=== PATIENT | female | born 2000 | race Caucasian/White ===

== ENCOUNTER 2018-05-05 21:45 | Emergency (ER) | payer OTHER ==
[~2018-05-05] VITALS: Ht 162.6 cm; Wt 99.8 kg
[~2018-05-05 21:45] MED LIST: KEFLEX500 MG PO; MEDROLDOSEPACK PO
[2018-05-05] MEDS ORDERED: AZITHROMYCIN 2250 MG (21:54)
[2018-05-05] MEDS ORDERED: HYDROCODONE-ACE15 ML PO (22:41)
[2018-05-05 23:06] VITALS: BP 117/72
== END 2018-05-05 23:08 | disposition home or self-care (01) ==
LOC: M.ERS 21:45
DX: J02.9 Acute pharyngitis, unspecified (principal); J45.909 Unspecified asthma, uncomplicated; F17.210 Nicotine dependence, cigarettes, uncomplicated; Z88.0 Allergy status to penicillin; Z88.1 Allergy status to other antibiotic agents

== ENCOUNTER 2018-05-29 22:56 | Emergency (ER) | payer OTHER ==
[~2018-05-29] VITALS: Ht 162.6 cm; Wt 102.1 kg
[~2018-05-29 22:56] MED LIST changes: +AZITHROMYCIN 2250 MG; +HYDROCODONE-ACE15 ML PO
[2018-05-29] MEDS ORDERED: IBUPROFEN 800800 M1 PO (23:35)
[2018-05-29 23:56] VITALS: BP 113/76
== END 2018-05-29 23:59 | disposition home or self-care (01) ==
LOC: M.ERS 22:56
DX: S93.491A Sprain of other ligament of right ankle, initial encounter (principal); J45.909 Unspecified asthma, uncomplicated; Z88.0 Allergy status to penicillin; Z88.2 Allergy status to sulfonamides; Z88.8 Allergy status to other drugs, medicaments and biological substances; X50.1XXA Overexertion from prolonged static or awkward postures, initial encounter; Y93.89 Activity, other specified; Y92.89 Other specified places as the place of occurrence of the external cause; Y99.8 Other external cause status

== ENCOUNTER 2019-05-18 15:10 | Emergency (ER) | payer OTHER ==
[~2019-05-18] VITALS: Ht 162.6 cm; Wt 117.9 kg
[~2019-05-18 15:10] MED LIST changes: +IBUPROFEN 800800 M1 PO
[2019-05-18 16:00] LABS: ABSOLUTE EOSINOPHILS 0.3 thou/uL (0.0-0.7); ABSOLUTE MONOCYTES 0.9 thou/uL (0.0-1.2); ABSOLUTE NEUTROPHILS 5.4 thou/uL (1.6-8.1); BASOPHILS 0.3 %; EOSINOPHILS 3.6 %; HEMATOCRIT 41.8 % (37.0-47.0); HEMOGLOBIN 14.1 gm/dL (12.0-15.0); LYMPHOCYTES 23.3 %; MCH 29.2 pg (26.0-34.0); MCHC 33.8 g/dL (28.0-37.0); MCV 86.4 fL (80.0-100.0); MONOCYTES 10.7 %; MPV 7.2 fl. (7.2-11.1); NUCLEATED RBCS 0 /100WBC; PLATELET COUNT* 315 thou/uL (150-400); POLYS 62.1 %; RBC 4.84 mil/uL (4.20-5.00); RDW-CV 13.9 % (10.5-14.5); WBC 8.7 thou/uL (4.0-11.0)
[2019-05-18 16:07] LABS: ANION GAP 9 mmol/L (7-16); BUN 8 mg/dL (7-18); CALCIUM 9.1 mg/dL (8.5-10.1); CHLORIDE 104 mmol/L (98-107); CO2 28 mmol/L (21-32); CREATININE 0.5 mg/dL (0.6-1.3); GLUCOSE 109 mg/dL (70-99); POTASSIUM 3.7 mmol/L (3.5-5.1); SODIUM 141 mmol/L (136-145)
[2019-05-18 16:25] LABS: ALBUMIN 3.7 g/dL (3.4-5.0); ALKALINE PHOSPHATASE 76 U/L (46-116); NT-PRO BRAIN NAT PEPTIDE 86 pg/mL (<300); SGOT 19 U/L (15-37); SGPT 32 U/L (30-65); TOTAL BILIRUBIN 0.3 mg/dL (<0.1-1.0); TOTAL PROTEIN 7.8 g/dL (6.4-8.2); TROPONIN-I LEVEL <0.06 ng/mL (<0.06)
[2019-05-18] MEDS ORDERED: AZITHROMYCIN500 MG PO (17:01)
[2019-05-18] MEDS ORDERED: MEDROLDOSEPACK PO (17:01)
[2019-05-18] MEDS ORDERED: VENTOLIN HFA 1818 GM INH (17:01)
[2019-05-18] MEDS ORDERED: ALBUTEROL2.5 MG/31 INH (17:07)
[2019-05-18 17:15] VITALS: BP 128/81
--- NOTE | 2019-05-19 10:20 | EKG ---
[place] [address] ELECTROCARDIOGRAM REPORT Name: SARWAT GARCIA Room: [facility] [place]#: [id number] Admission: 05/18/19 Attend Phys: Discharge: 05/18/19 Date of : [birth year] Report #: [id number] THIS REPORT FOR: //name// [facility] ED Test Date: 2019-05-18 Test Time: 16:26:52 Pat Name: SARWAT GARCIA Department: Room: Gender: F [employer]: : 2000 Requested By: Petra Santos Order Number: [id number] MD: Abdi Jeffers Measurements Intervals [place] Rate: 100 P: 27 [place]: 147 QRS: 20 QRSD: 88 T: 2 QT: 356 QTc: 460 Interpretive Statements Sinus tachycardia Probable left atrial enlargement No previous ECG available for comparison Electronically Signed On 05-19-2019 10:20:28 CDT by Abdi Jeffers [email or web address] <ELECTRONICALLY SIGNED> By: Abdi Jeffers MD, [facility] 05/19/19 1020 1626 1626 Abdi Jeffers MD, FACC /EPI
== END 2019-05-18 17:15 | disposition home or self-care (01) ==
LOC: M.ERS 15:10
PROVIDERS: Nurse Practitioner Family
DX: J45.901 Unspecified asthma with (acute) exacerbation (principal); Z88.0 Allergy status to penicillin; Z88.2 Allergy status to sulfonamides